=== PATIENT | female | born 1960 | race Caucasian/White ===

== ENCOUNTER → 2017-05-29 | Outpatient (CLI) | payer BC ==
[~2017-05-29] MED LIST: ABILIF5PT PO; ACE325 PO; ACTI1/05PT PO; ALB17R INH; BUPR-472 PO; CHOL200021 PO; ESTR1PAT99 TD; FLU20 PO; IBAN150T6 PO; IBU800 PO; IBUP800T37 PO; LOR10 PO; MELA3TAB45 PO; MET500 PO; MOMR; MONT10TA22 PO; MULT-859 PO; MYLL PO; NEBU1KIT30 MC; NORG1TAB61 PO; OLAN10TA23 PO; OXYC-865 PO; PROG100C PO; RAME8TAB24 PO; SIMV-42 PO; TRAZ-133 PO; ZOLP12.548 PO
--- NOTE | 2017-05-29 13:55 | RADIOLOGY IMAGING REPORT ---
FACILITY: [facility] PATIENT NAME: KIRSTIN STALLWORTH : [id number] MR: [id number] V: [id number] EXAM DATE: [id number] ORDERING PHYSICIAN: DANE FARRIS TECHNOLOGIST: Marjan Foy PROCEDURE:BILATERAL DIGITAL SCREENING MAMMOGRAM WITH CAD ASSISTED INTERPRETATION & 3D TOMOSYNTHESIS COMPARISON:Prior mammograms 05/22/16, 05/11/15, 05/05/14, 04/29/13, 04/23/12. INDICATIONS:SCREENING FINDINGS: Moderately heterogeneous fibroglandular tissue is seen throughout the breasts. The parenchymal pattern has remained stable allowing for difference in mammographic technique & patient positioning. There is no evidence of malignant appearing mass, malignant appearing calcifications or other secondary sign of malignancy in either breast. DIAGNOSTIC CATEGORY 1--NEGATIVE. RECOMMENDATIONS: ROUTINE MAMMOGRAM AND CLINICAL EVALUATION. IMPRESSION: BIRADS 1: Negative No significant abnormality is seen Dictated by: Lizeth Olsen M.D. on 05/29/2017 at 11:56 Transcribed by: MELA on 05/29/2017 at 13:22 Approved by: Lizeth Olsen M.D. on 05/29/2017 at 13:54 [facility]
== END ==
LOC: MAMO 04:35
PROVIDERS: ATTEND Nurse Practitioner Family
DX: Z12.31 Encounter for screening mammogram for malignant neoplasm of breast (principal)
CPT/HCPCS: 77063; 77067

== ENCOUNTER → 2018-07-08 | Outpatient (CLI) | payer BC ==
--- NOTE | 2018-07-09 15:01 | RADIOLOGY IMAGING REPORT ---
FACILITY: [facility] PATIENT NAME: KIRSTIN STALLWORTH : [id number] MR: [id number] V: [id number] EXAM DATE: ORDERING PHYSICIAN: SHELL JUDD TECHNOLOGIST: Marjan Foy PROCEDURE:BILATERAL DIGITAL SCREENING MAMMOGRAM WITH CAD ASSISTED INTERPRETATION & 3D TOMOSYNTHESIS COMPARISON:Prior mammograms 05/29/17, 05/22/16, 05/11/15, 05/05/14, 04/29/13. INDICATIONS:screening FINDINGS: The breasts are heterogeneously dense which can obscure small masses. The parenchymal pattern has remained stable allowing for difference in mammographic technique & patient positioning. DIAGNOSTIC CATEGORY 1--NEGATIVE. RECOMMENDATIONS: ROUTINE MAMMOGRAM AND CLINICAL EVALUATION. IMPRESSION: BIRADS 1: Negative. No significant abnormality is seen. Dictated by: Lizeth Olsen M.D. on 07/08/2018 at 15:58 Transcribed by: MELA on 07/09/2018 at 13:34 Approved by: Lizeth Olsen M.D. on 07/09/2018 at 15:00 [facility]
== END ==
LOC: MAMO 01:06
PROVIDERS: ATTEND Physician Assistant
DX: Z12.31 Encounter for screening mammogram for malignant neoplasm of breast (principal)
CPT/HCPCS: 77063; 77067